=== PATIENT | female | born 1965 | race Caucasian/White ===

== ENCOUNTER → 2018-12-13 | Outpatient (CLI) | payer OTHER | END | disposition home or self-care (01) | LOC: RAH 15:45 | PROVIDERS: ATTEND Family Medicine | DX: Z12.31 Encounter for screening mammogram for malignant neoplasm of breast (principal) | CPT/HCPCS: 77067 ==

== ENCOUNTER → 2020-08-27 | Outpatient (CLI) | payer OTHER | END | disposition home or self-care (01) | LOC: RAH 08:16 | PROVIDERS: ATTEND Obstetrics & Gynecology | DX: Z12.31 Encounter for screening mammogram for malignant neoplasm of breast (principal) | CPT/HCPCS: 77067 ==

== ENCOUNTER → 2022-05-30 | Outpatient (CLI) | payer OTHER | END | disposition home or self-care (01) | LOC: RAH 13:30 | PROVIDERS: ATTEND Obstetrics & Gynecology | DX: Z12.31 Encounter for screening mammogram for malignant neoplasm of breast (principal) | CPT/HCPCS: 77067 ==

== ENCOUNTER → 2022-06-27 | Outpatient (CLI) | payer OTHER | END | disposition home or self-care (01) | LOC: SHCH 13:39 | PROVIDERS: ATTEND Internal Medicine Cardiovascular Disease | DX: I48.0 Paroxysmal atrial fibrillation (principal); I48.4 Atypical atrial flutter; I11.9 Hypertensive heart disease without heart failure; E78.5 Hyperlipidemia, unspecified | CPT/HCPCS: 93306 ==

== ENCOUNTER 2022-07-16 07:04 | Day surgery (SDC) | payer OTHER ==
[2022-07-15 08:43] LABS: BASOPHILS % (AUTO) 0.6 % (0.0-5.0); EOSINOPHILS % (AUTO) 0.7 % (0.0-8.0); LYMPHOCYTES % (AUTO) 29.9 % (21.0-51.0); MEAN CORPUSCULAR HEMOGLOBIN 30.6 pg (27.0-33.0); MEAN CORPUSCULAR VOLUME 92.7 fL (79-99); NEUTROPHILS % (AUTO) 60.7 % (40.0-77.0); PLATELET COUNT (AUTO) 168 K/uL (130-400); RED BLOOD CELL COUNT(AUTO) 4.64 MIL/uL (4.00-5.50); RED CELL DISTRIBUTION WIDTH 12.5 % (11.0-15.5); WHITE BLOOD COUNT (AUTO) 6.9 K/uL (4.8-10.8)
[2022-07-15 08:53] LABS: INR 1.14 (0.85-1.15); PROTHROMBIN TIME 12.3 SEC (9.6-11.6)
[2022-07-15 08:54] LABS: PARTIAL THROMBOPLASTIN TIME 31.3 SEC (26.3-35.5)
[2022-07-15 09:01] LABS: CREATININE 1.4 mg/dL (0.5-1.5); POTASSIUM 4.5 mmol/L (3.5-5.1)
[2022-07-15 09:20] VITALS: BP 99/76
[~2022-07-16] VITALS: Ht 165.1 cm; Wt 123.1 kg
[2022-07-16] VITALS (9 sets, daily range): BP systolic 101–125; BP diastolic 40–86
[~2022-07-16 07:04] MED LIST: 0.9%NACL 1000ML 1,000 ML IV SCH; ATEN25TA PO; BENA-8 PO; DOXY50TA14 PO; EZET10TA13 PO; LEVO5TAB13 PO; MONT10TA21 PO; OLANZAPINE PO; OMEP20CA12 PO; POTA-200 PO; PROP150T28 PO; RIVA20TA PO; ROSU5TAB PO; SUPER B COMPLEX PO; TORS20TA4 PO; VITAMIN K PO
[2022-07-16] MEDS ORDERED: FLUO20CA36 PO (08:44)
[2022-07-16] MEDS ORDERED: LIDOCAINE PF 100MG/5ML (2%) SYRINGE 5ML ONE (08:56)
[2022-07-16] MEDS ORDERED: PROPOFOL 10 MG/ML 20ML VIAL IV ONE (08:56)
== END 2022-07-16 11:10 | disposition home or self-care (01) ==
LOC: DAH 07:04
PROVIDERS: ATTEND Internal Medicine Cardiovascular Disease
DX: I48.19 Other persistent atrial fibrillation (principal); I10 Essential (primary) hypertension; E78.5 Hyperlipidemia, unspecified; I44.0 Atrioventricular block, first degree; I25.2 Old myocardial infarction; K21.9 Gastro-esophageal reflux disease without esophagitis; E66.9 Obesity, unspecified; F32.A Depression, unspecified; Z88.2 Allergy status to sulfonamides; Z98.890 Other specified postprocedural states; Z88.8 Allergy status to other drugs, medicaments and biological substances; Z79.01 Long term (current) use of anticoagulants; Z79.899 Other long term (current) drug therapy; Z88.0 Allergy status to penicillin; Z68.42 Body mass index [BMI] 45.0-49.9, adult
CPT/HCPCS: 80048; 84703; 84702; 85025; 85610; 85730; 36415; 92960; 93005 ×2; A4223 ×3; J7030; J2001; J2704; A4215; A7002; A4222; A4221; A4663; A4216; A4606; 99156; 99157

== ENCOUNTER 2022-12-15 05:57 | Day surgery (SDC) | payer OTHER ==
[2022-12-11 15:14] LABS: BASOPHILS % (AUTO) 0.4 % (0.0-5.0); HEMATOCRIT 43.1 % (36-48); LYMPHOCYTES % (AUTO) 26.1 % (21.0-51.0); MEAN CORPUSCULAR HEMOGLOBIN 30.5 pg (27.0-33.0); MEAN CORPUSCULAR VOLUME 95.4 fL (79-99); MONOCYTES % (AUTO) 8.6 % (3.0-13.0); NEUTROPHILS % (AUTO) 63.3 % (40.0-77.0); PLATELET COUNT (AUTO) 168 K/uL (130-400); RED BLOOD CELL COUNT(AUTO) 4.52 MIL/uL (4.00-5.50); RED CELL DISTRIBUTION WIDTH 12.9 % (11.0-15.5); WHITE BLOOD COUNT (AUTO) 6.9 K/uL (4.8-10.8)
[2022-12-11 15:21] LABS: CREATININE 1.3 mg/dL (0.5-1.5); POTASSIUM 4.2 mmol/L (3.5-5.1)
[2022-12-12 09:32] VITALS: BP 135/62
[2022-12-15] VITALS (12 sets, daily range): BP systolic 103–138; BP diastolic 43–69
[~2022-12-15] VITALS: Ht 165.1 cm; Wt 127.9 kg
[~2022-12-15 05:57] MED LIST changes: -0.9%NACL 1000ML 1,000 ML IV SCH; -ATEN25TA PO; +ATEN50TA PO; +DOXY100C5 PO; -DOXY50TA14 PO; +FLUO20CA36 PO; +OLAN1CAP PO; -OLANZAPINE PO; -PROP150T28 PO; +PROP325C5 PO; -SUPER B COMPLEX PO; -VITAMIN K PO
[2022-12-15] MEDS ORDERED: 0.9%NACL 1000ML 1,000 ML IV ONE (07:20)
[2022-12-15] MEDS ORDERED: PROPOFOL 10 MG/ML 20ML VIAL IV ONE (07:30)
== END 2022-12-15 09:45 | disposition home or self-care (01) ==
LOC: CLH 05:57 → DAH 05:57 → CLH 09:45
PROVIDERS: ATTEND Internal Medicine Cardiovascular Disease
DX: I48.4 Atypical atrial flutter (principal); Z20.822 Contact with and (suspected) exposure to COVID-19; I47.1 Supraventricular tachycardia; I48.0 Paroxysmal atrial fibrillation; I10 Essential (primary) hypertension; E66.01 Morbid (severe) obesity due to excess calories; G47.33 Obstructive sleep apnea (adult) (pediatric); E78.5 Hyperlipidemia, unspecified; I25.2 Old myocardial infarction; F32.A Depression, unspecified; Z88.0 Allergy status to penicillin; Z88.2 Allergy status to sulfonamides; Z68.42 Body mass index [BMI] 45.0-49.9, adult; Z79.01 Long term (current) use of anticoagulants; Z79.899 Other long term (current) drug therapy
CPT/HCPCS: 80048; 85025; 87426 ×2; 36415; 92960 ×2; 93005 ×2; A4223 ×6; A4221 ×2; A4663 ×2; J7030 ×3; J2704; A4215 ×2; A7002 ×2; A4222 ×2; A4606

== ENCOUNTER → 2023-01-12 | Outpatient (CLI) | payer OTHER | END | disposition home or self-care (01) | LOC: RAH 15:07 | PROVIDERS: ATTEND Obstetrics & Gynecology | DX: D25.9 Leiomyoma of uterus, unspecified (principal); N95.0 Postmenopausal bleeding | CPT/HCPCS: 76830 ==

== ENCOUNTER → 2023-05-26 | Outpatient (CLI) | payer OTHER ==
[~2023-05-26] MED LIST changes: +MONT-47 PO; -MONT10TA21 PO
== END | disposition home or self-care (01) ==
LOC: RAH 14:29
PROVIDERS: ATTEND Obstetrics & Gynecology
DX: N95.0 Postmenopausal bleeding (principal)
CPT/HCPCS: 76830

== ENCOUNTER → 2023-06-04 | Outpatient (CLI) | payer OTHER | END | disposition home or self-care (01) | LOC: RAH 12:27 | PROVIDERS: ATTEND Obstetrics & Gynecology | DX: N63.10 Unspecified lump in the right breast, unspecified quadrant (principal); N64.89 Other specified disorders of breast | CPT/HCPCS: 76641 ==

== ENCOUNTER 2024-10-23 12:14 | Emergency (ER) | payer BC ==
[~2024-10-23] VITALS: Ht 167.6 cm; Wt 123.4 kg
[~2024-10-23 12:14] MED LIST changes: +DRON400T7 PO; -EZET10TA13 PO; +EZET10TA81 PO; +FLUO-418 PO; -FLUO20CA36 PO; -OLAN1CAP PO; +OLAN5TAB76 PO; +PROP325C17 PO; -PROP325C5 PO
--- NOTE | 2024-10-23 13:01 | HMCIMG ---
CHEST 2VWS CLINICAL HISTORY: SOB COMPARISON: None TECHNIQUE: Two views of the chest were obtained. FINDINGS: Lungs are clear. The cardiac size and mediastinum are unremarkable. The bony structures are within normal limits. IMPRESSION: No acute cardiopulmonary process identified.
[2024-10-23 14:51] LABS: HEMATOCRIT 44.1 % (36-48); MEAN CORPUSCULAR HEMOGLOBIN 30.8 pg (27.0-33.0); MEAN CORPUSCULAR HGB CONC 33.3 g/dL (32.0-36.0); MEAN CORPUSCULAR VOLUME 92.3 fL (79-99); PLATELET COUNT (AUTO) 117 K/uL (130-400); RED BLOOD CELL COUNT(AUTO) 4.78 MIL/uL (4.00-5.50); RED CELL DISTRIBUTION WIDTH 13.1 % (11.0-15.5); WHITE BLOOD COUNT (AUTO) 7.6 K/uL (4.8-10.8)
[2024-10-23 15:03] LABS: INR 1.27 (0.85-1.15); POTASSIUM 4.9 mmol/L (3.5-5.1); PROTHROMBIN TIME 13.5 SEC (9.6-11.6)
[2024-10-23 15:04] LABS: PARTIAL THROMBOPLASTIN TIME 26.5 SEC (26.3-35.5)
[2024-10-23 15:21] LABS: B-TYPE NATRIURETIC PEPTIDE 43 pg/mL (0-100)
[2024-10-23] MEDS: IpraTROPium/alBUTERol SULFATE 3 ML SOLUTION IH ONE (15:35)
[2024-10-23 15:37] VITALS: PULSE 108; RESP 18
[2024-10-23 16:12] LABS: BAND NEUTROPHILS % (MANUAL) 17 % (0-2); LYMPHOCYTES % (MANUAL) 29 % (22-44); MAN.DIFF COMMENT-IMPRESSION MANUAL DIFFERENTIAL; MONOCYTES % (MANUAL) 3 % (2-9); PLATELET MORPHOLOGY COMMENT SLIGHTLY DECREASED; SEGMENTED NEUTROPHILS % 51 % (40-70); TOTAL CELLS COUNTED 100; WBC MORPHOLOGY CONSISTENT W/DIFF
[2024-10-23] MEDS ORDERED: AUD IH (16:12)
--- NOTE | 2024-10-23 16:12 | ERN ---
General Chief Complaint: Shortness of Breath Stated Complaint: COUGH WITH SOB Time Seen by MD: 12:17 Time Seen by Midlevel: 12:17 Source: patient History of Present Illness Initial Comments 59-year-old female who presents to the ED due to shortness of breath. Patient reports cough, chest wall pain on with breathing. Denies any fever, vomiting, or further associated symptoms. PMHx AFib, asthma, HTN Allergies: Coded Allergies: Penicillins (Unverified Allergy, Severe, ANAPHALAPTIC SHOCK, 11/07/13) Sulfa (Sulfonamide Antibiotics) (Unverified Allergy, Severe, HIVES, ) simvastatin (Unverified Allergy, Severe, PAINFUL JOINTS, 11/07/13) wasp venom (Unverified Allergy, Severe, SWELLING, 11/07/13) Home Meds Active Scripts Albuterol Sulfate (Albuterol Sulfate) 2.5 Mg/0.5 Ml Vial.neb, 2.5 MG IH Q6H for wheezing/sob for 10 Days, #20 INH 0 Refills Prov:NATA MCNAIR 10/23/24 Reported Medications Olanzapine (Olanzapine) 5 Mg Tablet, 5 MG PO HS, TAB 07/02/23 Dronedarone Hydrochloride (Multaq) 400 Mg Tablet, 400 MG PO BID, TAB 07/02/23 Atenolol (Atenolol) 50 Mg Tablet, 50 MG PO HS, TAB 12/12/22 Propafenone HCl (Propafenone HCl) 325 Mg Cap.er.12h, 325 MG PO BID, CAPSULE.DR 12/12/22 Doxycycline Hyclate (Doxycycline Hyclate) 100 Mg Capsule, 100 MG PO BID, CAP 12/12/22 Fluoxetine HCl (Fluoxetine HCl) 20 Mg Capsule, 20 MG PO HS, CAP 07/16/22 Rivaroxaban (Xarelto) 20 Mg Tablet, 20 MG PO HS, TAB 07/15/22 Montelukast Sodium (Singulair) 10 Mg Tablet, 10 MG PO HS, TAB 07/15/22 Torsemide (Torsemide) 20 Mg Tablet, 20 MG PO HS, TAB 07/15/22 Rosuvastatin Calcium (Crestor) 5 Mg Tablet, 5 MG PO HS, TAB 07/15/22 Ezetimibe (Zetia) 10 Mg Tablet, 10 MG PO HS, TAB 07/15/22 Benazepril HCl (Benazepril HCl) 20 Mg Tablet, 20 MG PO HS, TAB 07/15/22 Omeprazole (Omeprazole) 20 Mg Capsule.dr, 20 MG PO HS, CAP 07/15/22 Potassium Chloride (Potassium Chloride) 10 Meq Tab.er.prt, 20 MEQ PO HS 07/15/22 Levocetirizine Dihydrochloride (Levocetirizine Dihydrochloride) 5 Mg Tablet, 5 MG PO HS, TAB 07/15/22 Past Medical History Past Medical History: A-Fib, Asthma, GERD, Hypertension, Pneumonia Past Surgical History: None ROS Dictation Constitutional: Negative for fever,chills, and weight loss Eyes: Negative for injury, pain,redness, and discharge ENT: Negative for injury,pain or swelling Cardiovascular: Negative for chest pain, palpitations, and edema Respiratory: Positive for shortness of breath, cough Negative for wheezing, Abdomen/GI: Negative for abdominal pain, nausea, vomiting, diarrhea, and constipation Back: Negative for injury and pain : Negative for painful urination, bleeding or discharge MS/Extremity: Negative for injury and deformity Skin: Negative for rash, and discoloration Neuro: Negative for headache, weakness, numbness, tingling, and seizure Psych: Negative for suicide ideation, homicidal ideation, and hallucinations Results Laboratory and Microbiology Lab and Micro Result Laboratory Tests Test 10/23/24 14:35 10/23/24 16:04 White Blood Count 7.6 K/uL (4.8-10.8) Red Blood Count 4.78 MIL/uL (4.00-5.50) Hemoglobin 14.7 g/dL (12.0-16.0) Hematocrit 44.1 % (36-48) Mean Corpuscular Volume 92.3 fL (79-99) Mean Corpuscular Hemoglobin 30.8 pg (27.0-33.0) Mean Corpuscular Hemoglobin Concent 33.3 g/dL (32.0-36.0) Red Cell Distribution Width 13.1 % (11.0-15.5) Platelet Count 117 K/uL (130-400) L Mean Platelet Volume 10.2 fL (7.5-10.5) Segmented Neutrophils % 51 % (40-70) Band Neutrophils % 17 % (0-2) H Lymphocytes % (Manual) 29 % (22-44) Monocytes % (Manual) 3 % (2-9) Nucleated Red Blood Cells 0.0 % (0.0-0.19) Differential Comment MANUAL DIFFERENTIAL White Cell Morphology Comment CONSISTENT W/DIFF Platelet Morphology Comment SLIGHTLY DECREASED Red Blood Cell Morphology NORMAL Prothrombin Time 13.5 SEC (9.6-11.6) H Prothromb Time International Ratio 1.27 (0.85-1.15) H Activated Partial Thromboplast Time 26.5 SEC (26.3-35.5) Sodium Level 146 mmol/L (136-145) H Potassium Level 4.9 mmol/L (3.5-5.1) Chloride Level 107 mmol/L (101-111) Carbon Dioxide Level 34 mmol/L (21-32) H Blood Urea Nitrogen 20 mg/dL (7-18) H Creatinine 1.0 mg/dL (0.5-1.0) Glomerular Filtration Rate Calc 64 mL/min (>90) Random Glucose 108 mg/dL (70-105) H Total Calcium 9.2 mg/dL (8.5-10.1) Troponin I High Sensitivity 5 ng/L (4-50) B-Type Natriuretic Peptide 43 pg/mL (0-100) Influenza Type A Antigen Negative For Type A Influenza Type B Antigen Negative For Type B SARS-CoV-2 Antigen (Rapid) PRESUMPTIVE NEGATIVE Labs Reviewed?: Yes EKG/XRAY/US/CT/MRI EKG Comment Date: 10/23/2024 Time: 12:35 Rate: 76 EKG interpretation: Atrial fibrillation, no STEMI, low voltage precordial leads Reviewed by ED Attending X-RAY Comment REASON: SOB ORDERING PHYSICIAN: NATA MCNAIR PROCEDURE: CXR2VW - CHEST 2VWS CHEST 2VWS CLINICAL HISTORY: SOB COMPARISON: None TECHNIQUE: Two views of the chest were obtained. FINDINGS: Lungs are clear. The cardiac size and mediastinum are unremarkable. The bony structures are within normal limits. IMPRESSION: No acute cardiopulmonary process identified. MDM MDM: Differential diagnosis: Viral illness, influenza, COVID, asthma exacerbation Labs are nonspecific. Negative serology influenza and SARs. Peribronchial congestion noted on chest x-ray otherwise no acute abnormalities noted. Admission versus discharge was discussed with patient. She verbalized understanding and stated she preferred to be discharged. Albuterol was prescribed for outpatient treatment. Advised to follow up with PCP. Return to the ED if any worsening symptoms. Patient verbalized understanding. Patient stable for discharge. Rationale: Tests considered and ordered secondary to shared decision making include: There are no social concerns with this patient. I independently interpreted the test that were performed, results were reviewed by me and considered findings on radiology if ordered. Medical management and examination interpretation discussions were had by me with other qualified healthcare professionals as indicated for the patient's care. ED Course Orders Procedure Category Date Status Time Cbc W Manual Diff LAB 10/23/24 Complete 12:18 Basic Metabolic Panel LAB 10/23/24 Complete 12:18 Chest 2vws RAD 10/23/24 Resulted 12:18 Pt And Ptt LAB 10/23/24 Complete 12:18 B-Type Natriuretic LAB 10/23/24 Complete Peptide 12:18 Troponin I High LAB 10/23/24 Complete Sensitivity 12:18 12 Lead Ekg Tracing- EKG 10/23/24 Resulted Technical 12:18 Covid19 (Sars Antigen LAB 10/23/24 Complete Rapid) 15:10 Ipratropium/Albuterol PHA 10/23/24 Complete Neb (Duoneb) 15:30 Influenza Type A & B, LAB 10/23/24 Complete Rapid 15:10 Current Medications Medications (Trade) Dose Ordered Sig/Edvin Route PRN Reason Start Time Stop Time Status Last Admin Dose Admin Albuterol (DUOneb) 1 udvial ONCE ONCE IH 10/23/24 15:30 10/23/24 15:31 DC 10/23/24 15:35 Vital Signs Date Time Temp Pulse Resp B/P (MAP) Pulse Ox O2 Delivery O2 Flow Rate FiO2 10/23/24 16:36 98.1 90 18 130/70 100 Room Air* 0 21 10/23/24 15:37 108 18 10/23/24 14:07 98.1 98 16 139/68 100 Room Air* 0 21 10/23/24 13:00 98.2 158 16 158/97 98 Room Air* 0 21 10/23/24 12:16 99.7 80 18 158/69 100 Room Air 0 DX & DISP Disposition: Discharge Departure Impression: Primary Impression: Asthma exacerbation Condition: Stable Scripts Albuterol Sulfate (Albuterol Sulfate) 2.5 Mg/0.5 Ml Vial.neb 2.5 MG IH Q6H for wheezing/sob for 10 Days, #20 INH 0 Refills Prov: NATA MCNAIR 10/23/24 Additional Instructions: Discharge home. Rest. Follow up with primary care DrAshwin in 24 hours. Return to the ER for any acute changes or worsening symptoms. If any medications were prescribed take as directed. Okay to continue home medications unless otherwise discussed during your visit in the emergency room today. Patient was also advised to follow-up with primary care physician in 1 to 2 days for continued monitoring. Referrals: NICK COOK MD (PCP) I participated in the following activities of this patient's care: For this patient encounter, I reviewed the PA or INSTRUCTIONAL DESIGNER documentation, treatment plan, and medical decision making. I did not have adbi-hr-cafp time with this patient. I will sign as the reviewing DrAshwin And agree with the treatment plan and dispositi on. NATA MCNAIR Oct 23, 2024 16:12
[2024-10-23 16:36] VITALS: BP 130/70; PULSE 90; RESP 18; TEMP 98.1; O2SAT 100
[2024-10-23 16:37] LABS: COVID19 (SARS ANTIGEN RAPID) PRESUMPTIVE NEGATIVE (NEGATIVE); INFLUENZA TYPE A Negative For Type A (NEGATIVE); INFLUENZA TYPE B Negative For Type B (NEGATIVE)
--- NOTE | 2024-10-23 17:35 | EKG ---
[facility] Test Date: 2024-10-23 Test Time: 12:35:11 Pat Name: BERNARD SILVA Department: [facility] Room: Gender: F Stencil Cutter Machine: [id number] Requested By: NATA MCNAIR Order Number: [id number] Reading MD: Erik Tripathi Measurements Intervals [place] Rate: 76 P: 0 GA: 0 QRS: 5 QRSD: 74 T: 11 QT: 363 QTc: 423 Interpretive Statements Atrial fibrillation Low voltage, precordial leads Compared to ECG 07/06/2023 11:15:27 Sinus bradycardia no longer present First degree AV block no longer present Electronically Signed On 10-23-2024 17:50:20 TRAFFIC ANALYSIS TECHNICIAN by Erik Tripathi Please click the below link to view image of tracing.
== END 2024-10-23 16:39 | disposition home or self-care (01) ==
LOC: EDH 12:14
DX: J45.901 Unspecified asthma with (acute) exacerbation (principal); I48.91 Unspecified atrial fibrillation; I10 Essential (primary) hypertension; K21.9 Gastro-esophageal reflux disease without esophagitis; Z88.0 Allergy status to penicillin; Z88.2 Allergy status to sulfonamides; Z20.822 Contact with and (suspected) exposure to COVID-19
CPT/HCPCS: 36415; 71046; 80048; 83880; 84484; 85025; 85610; 85730; 87426; 87804; 93005; 94640; 99284

== ENCOUNTER → 2024-11-23 | Outpatient (CLI) | payer BC ==
[~2024-11-23] MED LIST changes: +AUD IH
--- NOTE | 2024-11-24 10:33 | HMCIMG ---
MAMMO SCREENING BILATERAL HISTORY: Screening mammogram. COMPARISON: 06/12/2023 TECHNIQUE: Bilateral screening mammogram with CAD was performed with craniocaudal and mediolateral oblique projections. FINDINGS: The breasts are heterogeneous dense, which may obscure small masses. There is no evidence of a dominant mass, or suspicious microcalcification. There is no evidence of nipple retraction or skin thickening. IMPRESSION: 1. Stable mammogram. Patient was entered into a reminder system with a target due date for their next mammogram. BI-RADS: CATEGORY 2: BENIGN FINDINGS Recommend monthly self breast exam as well as annual clinical examination. A negative x-ray should not delay biopsy if a dominant or clinically suspicious mass is present, since 8-10% of cancers are not identified by mammography. Dense breasts particularly, may obscure an underlying neoplasm. Some of these may be detected clinically and therefore, clinical examination is an essential part of breast evaluation.
== END | disposition home or self-care (01) ==
LOC: RAH 13:58
PROVIDERS: ATTEND Obstetrics & Gynecology
DX: Z12.31 Encounter for screening mammogram for malignant neoplasm of breast (principal); R92.333 Mammographic heterogeneous density, bilateral breasts
CPT/HCPCS: 77067

== ENCOUNTER → 2024-11-24 | Outpatient (CLI) | payer BC ==
--- NOTE | 2024-11-24 12:46 | HMCIMG ---
US TRANSVAGINAL NON-OB HISTORY: Bleeding COMPARISON: 05/26/2023 TECHNIQUE: Transabdominal pelvic ultrasound study was performed. FINDINGS: The uterus measures 6 x 2.9 x 3.9 cm. Both ovaries are not seen. Endometrial thickness is 3 mm. The study is limited due to patient's large body habitus. Previously described fibroid is not seen on current study. No free fluid is seen in the cul-de-sac. IMPRESSION: 1. No adnexal mass is seen.
== END | disposition home or self-care (01) ==
LOC: RAH 10:38
PROVIDERS: ATTEND Obstetrics & Gynecology
DX: N95.0 Postmenopausal bleeding (principal)
CPT/HCPCS: 76830

== ENCOUNTER → 2024-12-16 | Outpatient (CLI) | payer BC ==
--- NOTE | 2024-12-16 10:53 | HMCIMG ---
US BREAST BILATERAL REASON: dense breast COMPARISON: None TECHNIQUE: Bilateral breast ultrasound images were obtained and compared to 2 prior screening mammogram 1 06/17/2025 and previous breast ultrasound 06/04/2023. FINDINGS: Right breast ultrasound images show a 4 mm cyst in the 10:00 position of the right breast. Parenchyma appears otherwise normal. There are no focal solid masses. There is no architectural distortion or acoustical shadowing. There are some normal-appearing lymph nodes in the axilla. Left breast findings show an axillary lymph node, prominent at 3.3 cm but with a normal fatty replaced hilum. The left breast parenchyma appears unremarkable throughout without evidence of mass or cyst. Impression: 1. No suspicious findings in either breast. 2. Recommend continued routine screening mammographic follow-up, next bilateral exam due November 2025.
== END | disposition home or self-care (01) ==
LOC: RAH 09:50
PROVIDERS: ATTEND Obstetrics & Gynecology
DX: N60.01 Solitary cyst of right breast (principal); R92.333 Mammographic heterogeneous density, bilateral breasts; N63.20 Unspecified lump in the left breast, unspecified quadrant

== ENCOUNTER → 2025-01-14 | Outpatient (CLI) | payer BC ==
--- NOTE | 2025-01-19 08:43 | HMCSR ---
APPROVED REPORT EXAM: Two-dimensional and M-mode echocardiogram with Doppler and color Doppler. INDICATION ICD: I48.1 2D Dimensions RVDd3.2 cmLVEF(%)69.6 (>50%)LA ESV INDEX (BP)18.48 mL/m2 IVSd0.9 (0.7-1.1cm)FS(%)39 % LVDd3.7 (3.8-5.6cm)LA (2D)4.5 (1.6-4.0cm) PWd1.0 (0.7-1.1cm)LVOT diam1.7 (1.8-2.4cm) IVSs1.2 cm LVDs2.3 (2.5-4.0cm) PWs1.4 cm M-Mode Dimensions EPSS0.2 cm LA (MM)4.9 (1.6-4.0cm) Ao Root(MM)2.7 (2.0-3.7cm) Aortic Valve AoV Vmax1.4 m/Leroy Peak GR8.0 mmHgLVOT Vmax1.2 m/s AoV VTI0.3 mAo Mean GR3.7 mmHgLVOT VTI0.21 m RADHA (VMAX)1.8 cm2AVA (VTI) 1.8 cm2 Mitral Valve MV E Qpkm850.6 cm/sDECEL Tzud612 ms MV A Vmax32.8 cm/sP 1/2 T57 ms E/A ratio3.2MVA (PHT)3.9 cm2 TDI E/E' Okkqwb16.8E/E' Rheyaaa51.5 Medial E' Peak V7.00 cm/sLateral E' Peak V9.00 cm/s Pulmonary Valve PV Vmax1.1 m/s Left Ventricle The left ventricle is normal size. There is normal left ventricular wall thickness. The LVEF is 55-60 %. The left ventricular diastolic function is normal. Right Ventricle The right ventricle is normal size. The right ventricular systolic function is normal. Atria The left atrium size is normal. The right atrium size is normal. Aortic Valve The aortic valve is normal in structure. No aortic regurgitation is present. There is no aortic valvu lar stenosis. Mitral Valve The mitral valve is normal in structure. There is no mitral valve regurgitation noted. There is no mi tral valve stenosis. Tricuspid Valve The tricuspid valve is normal in structure. There is no tricuspid valve regurgitation noted. Pulmonic Valve The pulmonary valve is normal in structure. There is trace of pulmonic valvular regurgitation. Great Vessels The aortic root is normal in size. The IVC is normal in size and collapses >50% with inspiration. Pericardium There is no pericardial effusion. Other Information Quality : Adequate Conclusion The left ventricle is normal size. The LVEF is 55-60%. The left ventricular diastolic function is normal. The right ventricle is normal size. The right ventricular systolic function is normal. The left atrium size is normal. The right atrium size is normal. No valvular pathology. There is no pericardial effusion.
== END | disposition home or self-care (01) ==
LOC: SHCH 11:59
PROVIDERS: ATTEND Internal Medicine Cardiovascular Disease
DX: I48.19 Other persistent atrial fibrillation (principal)
CPT/HCPCS: 93306

== ENCOUNTER → 2025-03-15 | Outpatient (CLI) | payer BC ==
--- NOTE | 2025-03-15 14:06 | HMCIMG ---
US TRANSVAGINAL NON-OB HISTORY: Postmenopausal bleeding COMPARISON: None TECHNIQUE: Endovaginal pelvic ultrasound study was performed. FINDINGS: The uterus measures 7 x 3.3 x 3.6 cm. The right ovary measures 2.4 x 1.1 x 1.8 cm The left ovary measures 1.4 x 0.9 x 1.6 cm. Endometrial thickness is 11 mm. The study is limited due to patient's large body habitus. Possible fibroid is seen measuring 14 x 19 x 19 mm. No free fluid is seen in the cul-de-sac. IMPRESSION: 1. No adnexal mass is seen. Suspect fibroid uterus. Endometrium is thickened measuring 11 mm.
== END | disposition home or self-care (01) ==
LOC: RAH 12:19
PROVIDERS: ATTEND Obstetrics & Gynecology
DX: R93.89 Abnormal findings on diagnostic imaging of other specified body structures (principal); N95.0 Postmenopausal bleeding
CPT/HCPCS: 76830

== ENCOUNTER → 2025-06-29 | Outpatient (CLI) | payer BC ==
--- NOTE | 2025-06-30 07:11 | HMCIMG ---
EXAMINATION: COMPLETE TRANSVAGINAL ULTRASOUND OF PELVIS. CLINICAL HISTORY: Abnormal finding on diagnostic imaging. COMPARISON: Ultrasound of the pelvis dated 03/15/2025. TECHNIQUE: Multiple real-time grayscale images of the pelvis were obtained. In addition, color Doppler is medically necessary to perform to assess for vascularity and blood flow. FINDINGS: The uterus is anteverted, normal in caliber and measures 6.5 x 2.7 x 4.1 cm in the craniocaudal, AP, and transverse dimensions respectively. The endometrium measures approximately 1.2 cm. Cervix appears normal. The right ovary is normal in caliber and measures 2.3 x 0.7 x 2.0 cm. The left ovary is normal in caliber and measures 1.5 x 1.0 x 2.1 cm. There is no free fluid in the cul-de-sac. IMPRESSION: No significant abnormality. Previously demonstrated uterine fibroid is not visualized. /Helix
== END | disposition home or self-care (01) ==
LOC: RAH 14:58
PROVIDERS: ATTEND Obstetrics & Gynecology
DX: R93.89 Abnormal findings on diagnostic imaging of other specified body structures (principal)
CPT/HCPCS: 76830